=== PATIENT | female | born 1955 | race Caucasian/White ===

== ENCOUNTER → 2016-06-22 | Outpatient (CLI) | payer BC ==
[~2016-06-22] MED LIST: ACET-749 PO; ASPI-232 PO; ATOR10TA82 PO; BUPRTAB PO; MULT-506 PO; OMEG10007 PO
--- NOTE | 2016-06-24 08:26 | MAMMOGRAPHY REPORT ---
BILATERAL DIGITAL SCREENING MAMMOGRAM TOMOSYNTHESIS WITH CAD: 06/22/2016 CLINICAL HISTORY: Routine screening. Patient has no complaints. TECHNIQUE: Breast tomosynthesis in addition to standard 2D mammography was performed. Current study was also evaluated with a Computer Aided Detection (CAD) system. COMPARISON: Comparison is made to exams dated: 06/18/2015 mammogram, 06/14/2014 mammogram, 04/18/2013 mammogram, 04/14/2012 mammogram, 04/08/2011 mammogram, and 04/07/2010 mammogram - [facility]. BREAST COMPOSITION: The tissue of both breasts is heterogeneously dense, which may obscure small ma sses. FINDINGS: There are stable groupings of punctate benign-appearing microcalcifications in the left br east. No new suspicious mass, architectural distortion or cluster of microcalcifications is seen. IMPRESSION: ACR BI-RADS CATEGORY 1: NEGATIVE There is no mammographic evidence of malignancy. A 1 year screening mammogram is recommended. The p atient will receive written notification of the results. Approximately 10% of breast cancers are not detected with mammography. A negative mammographic repor t should not delay biopsy if a clinically suggestive mass is present. Shelly Yip M.D. ay/:06/23/2016 17:54:30 [employer] [address] Radio Technician: Mickey SAENZ(R)([place]), [facility] letter sent: Normal 1/2 BI-RADS Code: ACR BI-RADS Category 1: Negative
== END | disposition home or self-care (01) ==
LOC: C.MAMM 07:46
PROVIDERS: ATTEND Obstetrics & Gynecology
DX: Z12.31 Encounter for screening mammogram for malignant neoplasm of breast (principal)

== ENCOUNTER → 2017-10-14 | Outpatient (CLI) | payer OTHER ==
[~2017-10-14] MED LIST changes: -ACET-749 PO
--- NOTE | 2017-10-15 14:32 | MAMMOGRAPHY REPORT ---
BILATERAL DIGITAL SCREENING MAMMOGRAM TOMOSYNTHESIS WITH CAD: 10/14/2017 CLINICAL HISTORY: Routine screening. Patient has no complaints. TECHNIQUE: Breast tomosynthesis in addition to standard 2D mammography was performed. Current study w as also evaluated with a Computer Aided Detection (CAD) system. COMPARISON: Comparison is made to exams dated: 06/22/2016 mammogram, 06/18/2015 mammogram, 06/14/2014 ma mmogram, 04/18/2013 mammogram, 04/14/2012 mammogram, and 04/08/2011 mammogram - [facility]. BREAST COMPOSITION: The tissue of both breasts is heterogeneously dense, which may obscure small mass es. FINDINGS: No suspicious masses, calcifications, or areas of architectural distortion are noted in either breast . There has been no significant interval change compared to prior exams. Benign-appearing left breas t calcifications are not significantly changed. IMPRESSION: ACR BI-RADS CATEGORY 2: BENIGN There is no mammographic evidence of malignancy. A 1 year screening mammogram is recommended.( [id number]) The patient will receive written notification of the results. Some breast cancers are not detected with mammography. A negative mammographic report should not anthony y biopsy if a clinically suggestive mass is present. Meri Gaston M.D. ah/:10/14/2017 15:00:46 Vineyard Tender: RT Jamilah(Boom)(M)([place]), [facility] letter sent: Normal 1/2 BI-RADS Code: ACR BI-RADS Category 2: Benign
== END | disposition home or self-care (01) ==
LOC: C.MAMM 14:18
PROVIDERS: ATTEND Obstetrics & Gynecology
DX: Z12.31 Encounter for screening mammogram for malignant neoplasm of breast (principal)

== ENCOUNTER 2019-05-01 05:44 | Inpatient (IN) ==
--- NOTE | 2019-04-12 16:00 | PAT Medication Instructions ---
Medication Instructions Date of Service April 12, 2019 Home Medications aspirin 81 mg PO QPM atorvastatin 10 mg PO HS multivitamin 1 tab PO QPM omega 9-gbv-kny-fish oil [Fish Oil] 1 cap PO QPM gabapentin 600 mg PO HS ibuprofen 400 mg PO Q6H PRN tramadol 50 mg PO Q6H PRN ASK your surgeon for instructions ibuprofen 400 mg PO Q6H PRN ASK your prescriber and surgeon aspirin 81 mg PO QPM STOP taking 2 weeks before surgery (or as soon as possible if surgery is within 2 weeks) omega 1-tpk-xqy-fish oil [Fish Oil] 1 cap PO QPM Take morning of surgery With a small sip of water, OTHERWISE NOTHING TO EAT OR DRINK AFTER MIDNIGHT: tramadol 50 mg PO Q6H PRN (okay to take up to 4 hours prior to surgery if needed) Take evening before surgery atorvastatin 10 mg PO HS multivitamin 1 tab PO QPM gabapentin 600 mg PO HS tramadol 50 mg PO Q6H PRN (if needed) Other Notes If you have any questions please call us at [phone] or [phone] or [phone] or [phone]
--- NOTE | 2019-04-17 09:40 | Anesthesiology Consultation ---
Date of Service April 17, 2019 Assessment & Plan (1) Encounter for pre-operative examination: Cardiology note: 03/16/19: 02/2019 stress test reviewed. "Normal stress echocardiogram with normal overall heart function. No findings to suggest prior heart attack. Good, no contraindications to surgery as planned." Chart Review Chart Review: Acceptable Risk for Surgery and Patient seen in Pre Admission Testing Teaching & Discussion Pre-Anesthesia Teaching/Discussion Notes: Instructed NPO after midnight before surgery,except medications with 15 cc of water. Medication instructions provided according to the PAT guidelines. History Surgery Operation Date: 05/01/19 07:45 Proposed Procedures p L4-L5 Decompression and Fusion, Spinal Cord Monitoring - Celso Fuchs DO Height/Weight Height: 5 ft 2 in Weight: 63.5 kg Allergies Allergy/AdvReac Type Severity Reaction Status Date / Time nickel Allergy Severe Rash Verified 04/10/19 10:50 benzocaine Allergy Unknown Rash (see Verified 04/17/19 09:53 comments) Additional Notes: *Surgeon's office made aware of nickel/benzocaine reactions* Medications Home Medications Medication Instructions Recorded Confirmed Last Taken aspirin 81 mg PO QPM 10/28/17 04/10/19 11/07/17 21:00 atorvastatin 10 mg PO HS 10/28/17 04/10/19 11/07/17 20:00 multivitamin 1 tab PO QPM 10/28/17 04/10/19 11/07/17 21:00 omega 6-aht-lim-fish oil [Fish Oil] 1 cap PO QPM 10/28/17 04/10/19 11/07/17 21:00 gabapentin 600 mg PO HS 04/10/19 04/10/19 Unknown ibuprofen 400 mg PO Q6H PRN 04/10/19 04/10/19 Unknown tramadol 50 mg PO Q6H PRN 04/10/19 04/10/19 Unknown Past Medical History Medical History Back pain associated with peripheral numbness Bulging lumbar disc Exercise / Class Metabolic Activity II 4-5 Yardwork/Stairs/Walk up hill Past Surgical History Surgical History History of carpal tunnel release RT HAND History of colonoscopy History of surgical removal of ganglion cyst RIGHT Hx of eye surgery MACULAR PUCKER - RIGHT EYE Right Vitrectomy: 11/08/17: MAC sedation at [facility] Hx of wisdom tooth extraction Trigger finger RT THUMB Past Anesthesia History No Hx of Anesthesia Complications (except PONV) and No Family Hx of Anesthesia Complications History of PONV No Hx of Motion Sickness and History of PONV Social History Smoking Status: Never smoker Do You Dip or Chew Tobacco: No Hx Alcohol Use: Yes Alcohol type: beer and wine alcohol intake frequency: a few times a week Hx Substance Use: No substance use type: does not use Review of Systems Patient denies chest pain, shortness of breath, dyspnea on exertion, cough, wheezing, palpitations. Physical Exam Vital Signs VITALS BP 117/78 P 73 TEMP 98.2 SP02 97%RA RESP 18 PHYSICAL Full neck and c-spine range of motion. Full TMJ range of motion. TMD 3.5 finger breaths Mallampati Score 1 Dentition: intact, crowns on sides Lungs: clear throughout to auscultation Cardiac: regular rate and rhythm, no murmurs noted Spine: normal Carotid arteries: negative bruit Extremities: no edema Testing Laboratory Results 04/17/19 10:05 04/17/19 10:05 PT 10.0 Seconds (9.0-12.0) 04/17/19 10:05 INR 1.0 (0.9-1.1) 04/17/19 10:05 APTT 24.3 Seconds (21.0-31.0) 04/17/19 10:05 Urine Color Yellow 04/17/19 10:05 Urine Appearance Clear (Clear) 04/17/19 10:05 Urine pH 5.5 (4.5-7.5) 04/17/19 10:05 Ur Specific Novi 1.015 (1.000-1.030) 04/17/19 10:05 Urine Protein Negative (Negative) 04/17/19 10:05 Urine Glucose (UA) Negative (Negative) 04/17/19 10:05 Urine Ketones Negative (Negative) 04/17/19 10:05 Urine Nitrite Negative (Negative) 04/17/19 10:05 Ur Leukocyte Esterase Negative (Negative) 04/17/19 10:05 Urine WBC (Auto) 1-5 /hpf (0-5) 04/17/19 10:05 Urine RBC (Auto) 5-10 /hpf (0-4) H 04/17/19 10:05 U Hyaline Cast (Auto) 0 /lpf (0-5) 04/17/19 10:05 U Epithel Cells (Auto) 10-20 /lpf (0-5) H 04/17/19 10:05 Urine Bacteria (Auto) Negative (Negative) 04/17/19 10:05 Blood Type O Positive 04/17/19 10:05 Antibody Screen NEGATIVE 04/17/19 10:05 Electrocardiogram Date: 03/08/19 Findings: + NSR @ (70) Chest X-Ray Date: 04/17/19 Findings: + NAD Stress Test Date: 03/15/19 Type: DSE DSE normal without inducible ischemia. Mild TR. Stress EKG with no evidence of ischemia. LVEF 60-64%. 109% MPHR.
--- NOTE | 2019-04-17 10:31 | XRay Report ---
XR chest Pre-admission PA/Lat CLINICAL HISTORY: pat preoperative evaluation COMPARISON STUDY: No previous studies for comparison. FINDINGS: The bones soft tissues and hemidiaphragms are normal. The cardiomediastinal silhouette is n ormal. The lungs are clear. The pulmonary vasculature is normal. IMPRESSION: Negative chest. ACT 112: Negative or not required by law. The above report was generated using voice recognition software. It may contain grammatical, syntax or spelling errors. Electronically signed by: Joseph Downs M.D. 04/17/2019 10:30 AM
[2019-04-17 11:49] LABS: Basophils # (auto) 0.03 K/uL (0-0.2); Basophils % (auto) 0.4 %; Eosinophils # (auto) 0.06 K/uL (0-0.5); Eosinophils % (auto) 0.9 %; Hematocrit (blood only) 38.8 % (37-47); Hemoglobin 13.1 g/dL (12.0-16.0); Immature Granulocytes # (auto) 0.02 K/uL (0.00-0.02); Immature Granulocytes % (auto) 0.3 %; Lymphocytes # (auto) 1.41 K/uL (1.2-3.4); Lymphocytes % (auto) 20.6 %; Mean Corpuscular Hemoglobin 33.1 pg (25-34); Mean Corpuscular Hgb Conc 33.8 g/dL (32-36); Mean Platelet Volume 10.7 fL (7.4-10.4); Monocytes # (auto) 0.38 K/uL (0.11-0.59); Monocytes % (auto) 5.6 %; Neutrophils # (auto) 4.93 K/uL (1.4-6.5); Neutrophils % (auto) 72.2 %; Platelet Count 236 K/uL (130-400); RDW Coefficient of Variation 12.5 % (11.5-14.5); RDW Standard Deviation 44.9 fL (36.4-46.3); Red Blood Count 3.96 M/uL (4.2-5.4); White Blood Count 6.83 K/uL (4.8-10.8)
[2019-04-17 11:56] LABS: BUN Creatinine Ratio 21.4 (10-20); Calcium 9.2 mg/dl (8.5-10.1); Creatinine Clr Calc Pharmacy 57.9 ml/min; Est GFR (African American) 82.2; Est GFR (Non-African American) 70.9; Potassium 4.1 mmol/L (3.5-5.1)
[2019-04-17 12:01] LABS: Partial Thromboplastin Ratio 0.9; Partial Thromboplastin Time 24.3 Seconds (21.0-31.0)
[2019-04-17 12:25] LABS: Appearance Urine Clear (Clear); Bacteria Urine Automated Negative (Negative); Bilirubin Urine Negative (Negative); Blood Urine 1+ (Negative); Cast Urine Automated 0 /lpf (0-5); Color Urine Yellow; Glucose Urine UA Negative (Negative); Ketones Urine Negative (Negative); Leukocyte Esterase Urine Negative (Negative); Nitrite Urine Negative (Negative); Protein Urine Negative (Negative); Specific Gravity Urine 1.015 (1.000-1.030); Urobilinogen Urine Negative (Negative); pH Urine 5.5 (4.5-7.5)
[2019-05-01] MEDS ORDERED: LR 15ML/HR IV SCH (06:00)
[2019-05-01] MEDS ORDERED: CEFAZOLIN 1000MG 1,000 MG/7.5 ML SYR IV SCH (06:00)
[2019-05-01] MEDS ORDERED: GABAPENTIN 600 MG DOSE PO SCH (06:00)
[2019-05-01] MEDS ORDERED: CeleBREX 200 MG CAP PO SCH (06:00)
[2019-05-01] MEDS ORDERED: ACETAMINOPHEN 500 MG TAB PO SCH (06:00)
[2019-05-01] MEDS ORDERED: BACITRACIN INJ 50,000 UNIT VIAL ONE (06:57)
[2019-05-01] MEDS ORDERED: BUPIVACAINE/EPINEPHRINE 0.5% MPF 1:200,000 10 ML VIAL ONE (06:58)
[2019-05-01] MEDS ORDERED: PROPOFOL IV EMULSION 10 MG/ML 20 ML VIAL IV ONE (07:04)
[2019-05-01] MEDS ORDERED: MIDAZOLAM HCL 1 MG/ML 2ML VIAL ONE (07:04)
[2019-05-01] MEDS ORDERED: NEOSTIGMINE METHYLSULFATE 1 MG/ML 10ML VIAL ONE (07:04)
[2019-05-01] MEDS ORDERED: DEXAMETHASONE SOD INJ 4 MG/ML VIAL ONE ×2 (07:04→08:24)
[2019-05-01] MEDS ORDERED: ONDANSETRON INJ 2 MG/ML 2 ML VIAL ONE ×2 (07:04→08:25)
[2019-05-01] MEDS ORDERED: LIDOCAINE HCL 2% 2 ML VIAL/AMP(20MG/ML) INFIL ONE (07:04)
[2019-05-01] MEDS ORDERED: GLYCOPYRROLATE 0.2 MG/ML VIAL ONE ×2 (07:04→08:24)
[2019-05-01] MEDS ORDERED: fentaNYL citrate 100 MCG/2 ML VIAL ONE (07:04)
[2019-05-01] MEDS ORDERED: LARYING-O-JET KIT (LTA) ONE (07:06)
[2019-05-01] MEDS ORDERED: ROCURONIUM BROMIDE 10 MG/ML 5 ML VIAL ONE (07:06)
[2019-05-01] MEDS ORDERED: SCOPOLAMINE 1.5 MG TDSY ONE (07:18)
[2019-05-01] MEDS ORDERED: fentaNYL citrate 100 MCG/2 ML VIAL IV PRN (07:19)
[2019-05-01] MEDS ORDERED: ONDANSETRON INJ 2 MG/ML 2 ML VIAL IV PRN ×2 (07:19→10:26)
[2019-05-01] MEDS ORDERED: ePHEDrine sulfate 50 MG/ML AMP IV PRN (07:19)
[2019-05-01] MEDS ORDERED: ATROPINE SULFATE 0.1 MG/ML 10ML SYR IV PRN (07:19)
[2019-05-01] MEDS ORDERED: HYDROmorphone INJ 2 MG/ML SYR/VIAL IV PRN (07:19)
--- NOTE | 2019-05-01 07:27 | History & Physical Bridge Note ---
Date of Service May 01, 2019 History & Physical Bridge Note I have examined the patient, reviewed the History & Physical and in the interval since the performance of the History & Physical I have noted the following changes of clinical significance: no changes noted
--- NOTE | 2019-05-01 07:28 | History & Physical Report ---
Date of Service May 01, 2019 Assessment & Plan (1) Neurogenic claudication due to lumbar spinal stenosis: L4-L5 decompression fusion Present on Admission?: Yes History of Present Illness Chief Complaint: Back and leg pain Primary Care Provider: Dilcia Mckeon MD This is a 64-year-old female presents with chronic persistent back and leg pain. After failing extensive course of nonoperative care is here for surgical invention. Allergies Allergy/AdvReac Type Severity Reaction Status Date / Time nickel Allergy Severe Rash Verified 05/01/19 05:58 benzocaine Allergy Unknown Rash (see Verified 05/01/19 05:58 comments) Home Medications Home Medications Medication Instructions Recorded Confirmed Type aspirin 81 mg PO QPM 10/28/17 05/01/19 History atorvastatin 10 mg PO HS 10/28/17 05/01/19 History multivitamin 1 tab PO QPM 10/28/17 05/01/19 History omega 8-jhu-gcg-fish oil [Fish Oil] 1 cap PO QPM 10/28/17 05/01/19 History gabapentin 600 mg PO HS 04/10/19 05/01/19 History ibuprofen 400 mg PO Q6H PRN 04/10/19 05/01/19 History tramadol 50 mg PO Q6H PRN 04/10/19 05/01/19 History Past Med/Surg History Medical History Back pain associated with peripheral numbness Bulging lumbar disc Surgical History History of carpal tunnel release RT HAND History of colonoscopy History of surgical removal of ganglion cyst RIGHT Hx of eye surgery MACULAR PUCKER - RIGHT EYE Right Vitrectomy: 11/08/17: MAC sedation at [facility] [place] Hx of wisdom tooth extraction Trigger finger RT THUMB Social History Preferred Language: Persian Communication Ability: Effective Health Concierge Required: No Beliefs That Will Affect Care: None Current Living Situation: Spouse Feels Safe at Home: Yes Safety Concerns: Feels Safe At This Time Smoking Status: Never smoker Do You Dip or Chew Tobacco: No ; Second Hand Exposure: No ; Hx Alcohol Use: Yes Alcohol type: beer and wine Hx Substance Use: No Physical Exam Physical Exam: Patient is alert and oriented neurologically intact. Results & Data Vital Signs (Past 12 Hours) Vital Signs Temp Pulse Resp BP Pulse Ox 05/01/19 06:08 36.8 C 71 20 119/68 95
[2019-05-01] MEDS ORDERED: PHENYLEPHRINE 100MCG/ML 5ML SYR ONE (08:13)
[2019-05-01] MEDS ORDERED: ePHEDrine sulfate 50 MG/ML SYR ONE (08:13)
[2019-05-01] MEDS ORDERED: FLOSEAL HEMOSTATIC MATRIX 10ML TOP ONE (08:21)
--- NOTE | 2019-05-01 09:09 | Operative Report ---
Post Operative Report Pre & Post Diagnosis Operation Date: 05/01/19 07:45 Pre-Op Diagnosis: LUMBAR INTERVERTEBRAL DISC DISPLACEMENT Post-Op Diagnosis: LUMBAR INTERVERTEBRAL DISC DISPLACEMENT I identified the patient and participated in the time-out.: Yes Procedure Operation Date: 05/01/19 07:45 Actual Procedures #1 lumbar decompression with bilateral medial facetectomies foraminotomies L4-5 per #2 posterior spinal fusion L4-5 per #3 placement posterior instrumentation L4-5 per #4 interbody fusion L4-5 per #5 placed a peek cage 12 x 22 mm at L4-5 p er #6 placement locally harvested morselized autograft in the posterior lateral gutters. #7 placement infuse collagen sponge, master graft in the posterior gutters and ostial amp interbody space. Surgeon Celso Fuchs, Supervisor [employer] Sahra Evans Estimated Blood Loss 100 Findings Consistent with Post-Op Diagnosis Specimens None Indications This is a 64-year-old female who presents with above-mentioned diagnosis after failing since course of nonoperative care is here for surgical intervention. Description of Procedure Patient was met with identified informed consent obtained. Patient was then taken to the operative suite underwent intubation placed in a prone position the Edvin table on top of the Sam frame. All bony prominences well-padded eyes inspected to ensure no external pressure placed upon up at this point the lumbar spine was prepped and draped in a normal sterile fashion. Sharp dissection with the assistance of Bovie cautery was performed down to and exposing the lamina and transverse processes of L4 and L5 bilaterally. From caudal cephalad fashion complete laminectomy of L4 was performed including medial facetectomies and foraminotomies. There is evidence of a massive discrimination on the left causing significant question of the traversing L5 nerve root. This was also removed in its entirety. Pedicle screws were then placed in L4 and L5 bilaterally with assistance of fluoroscopy the process aric placed. By way of a trans-foraminal approach on the left the discectomy was performed endplates curetted to subcortical bleeding bone and a 12 x 22 mm peek cage filled with osteo-bone graft tapped in position. The rods were then locked in final position bilaterally. Transverse processes of L4 and L5 bur to subcortical bleeding bone. Infuse collagen sponge master graft local autograft placed in the posterior lateral gutters. 15 round YAS drain inserted. The incision was then closed with 1 Vicryl in the fascia 2-0 Vicryl subcutaneously and 4 Monocryl for final skin closure. Steri-Strip sterile dressings placed. Patient will continue to PACU stable disc. Please note Sahra Evans present all the entire procedure involved the patient positioning complex portions of the surgery and final skin closure. I attest to the content of the Intraoperative Record and any orders documented therein. Any exceptions are noted below.
--- NOTE | 2019-05-01 09:11 | Fluoroscopy Report ---
FL lumbar spine 2-3V CLINICAL HISTORY: L4-L5 DECOMP/FUSION COMPARISON STUDY: None FLUOROSCOPY TIME: 11 seconds NUMBER OF FLUOROSCOPIC IMAGES: 2 FINDINGS: Image intensifier support for an L4-L5 laminectomy and fusion IMPRESSION: Image intensifier support for an L4-L5 laminectomy and fusion. ACT 112: Negative or not required by law. The above report was generated using voice recognition software. It may contain grammatical, syntax or spelling errors. Electronically signed by: Joseph Downs M.D. 05/01/2019 9:10 AM
--- NOTE | 2019-05-01 09:51 | Anesthesiology Progress Note ---
Date of Service May 01, 2019 Anesthesia Post Procedure Vital Signs Vital Signs: Temp Pulse Pulse Resp BP Pulse Ox 05/01/19 09:40 81 13 106/56 L 100 05/01/19 09:30 75 12 117/64 100 05/01/19 09:20 36.7 C 79 12 105/59 L 100 05/01/19 06:08 36.8 C 71 20 119/68 95 Pain Intensity Left Leg: Pain Intensity: 6 Transfer of Care Handoff Completed per policy Notes Mental Status: alert / awake / arousable and participated in evaluation Patient Amnestic to Procedure: Yes Nausea / Vomiting: adequately controlled Pain: adequately controlled Airway Patency, RR, SpO2: stable & adequate BP & HR: stable & adequate Hydration State: stable & adequate Anesthetic Complications: no major complications apparent and Pt Satisfied with anesthetic care
[2019-05-01] MEDS ORDERED: bisacodyL 10 MG SUPP PR PRN (10:26)
[2019-05-01] MEDS ORDERED: ONDANSETRON 4 MG OD TAB PO PRN (10:26)
[2019-05-01] MEDS ORDERED: ACETAMINOPHEN 1,000 MG/100 ML VIAL IV PRN (10:26)
[2019-05-01] MEDS ORDERED: LORazepam 0.5 MG/1 ML VIAL IV PRN (10:26)
[2019-05-01] MEDS ORDERED: SOD PHOSPHATE/SOD BIPHOSPHATE ENEMA 132 ML BTL PR PRN (10:26)
[2019-05-01] MEDS ORDERED: HYDROmorphone INJ 1 MG/ML SYRINGE IV PRN (10:26)
[2019-05-01] MEDS ORDERED: METOCLOPRAMIDE HCL INJ 5 MG/ML 2 ML VIAL IV PRN (10:26)
[2019-05-01] MEDS ORDERED: FAMOTIDINE 20 MG TAB PO PRN (10:26)
[2019-05-01] MEDS ORDERED: MAGNESIUM HYDROXIDE SUSP 30 ML UDC PO PRN (10:26)
[2019-05-01] MEDS ORDERED: DO NOT ADMINISTER FLU VACCINE PRN (10:26)
[2019-05-01] MEDS ORDERED: PROMETHAZINE HCL 12.5 MG in SODIUM CHLORIDE 0.9% 50 ML IV PRN (10:26)
[2019-05-01] MEDS ORDERED: ALUMINUM/MAGNESIUM SUSP 30 ML UDC PO PRN (10:26)
[2019-05-01] MEDS ORDERED: LORazepam 0.5 MG TAB PO PRN (10:26)
[2019-05-01] MEDS ORDERED: NALOXONE HCL 0.4 MG/1 ML VIAL/CARP IV PRN (10:26)
[2019-05-01] MEDS ORDERED: DO NOT ADMINISTER PNEUMOCOCCAL VACCINE PRN (10:26)
[2019-05-01] MEDS ORDERED: ACETAMINOPHEN 500 MG TAB PO PRN (10:26)
[2019-05-01] MEDS ORDERED: HYDROmorphone INJ 0.5 MG/0.5 ML SYR IV PRN (10:26)
[2019-05-01] MEDS: LACTATED RINGER'S 1,000 ML IV SCH ×2 (10:34→20:43)
[2019-05-01] MEDS: TRAMADOL HCL 50 MG TABLET PO PRN (10:40)
[2019-05-01] MEDS: CEFAZOLIN 1000MG 1,000 MG/7.5 ML SYR IV SCH ×2 (16:35→23:56)
[2019-05-01] MEDS: ATORVASTATIN 10 MG TAB PO SCH (20:44)
[2019-05-01] MEDS: GABAPENTIN 600 MG TAB PO SCH (20:44)
[2019-05-01] MEDS: MULTIVITAMIN TAB PO SCH (20:44)
[2019-05-01] MEDS: DOCUSATE SODIUM/SENNA 50/8.6MG TAB PO SCH (20:44)
[2019-05-01] MEDS: ASPIRIN 81 MG CHEW PO SCH (20:44)
[2019-05-02 05:31] LABS: Basophils # (auto) 0.01 K/uL (0-0.2); Basophils % (auto) 0.1 %; Hematocrit (blood only) 30.9 % (37-47); Hemoglobin 10.5 g/dL (12.0-16.0); Immature Granulocytes # (auto) 0.04 K/uL (0.00-0.02); Immature Granulocytes % (auto) 0.3 %; Lymphocytes # (auto) 1.15 K/uL (1.2-3.4); Lymphocytes % (auto) 8.1 %; Mean Corpuscular Hemoglobin 32.9 pg (25-34); Mean Corpuscular Volume 96.9 fL (80-100); Mean Platelet Volume 10.2 fL (7.4-10.4); Monocytes # (auto) 0.72 K/uL (0.11-0.59); Monocytes % (auto) 5.1 %; Neutrophils # (auto) 12.31 K/uL (1.4-6.5); Neutrophils % (auto) 86.4 %; Platelet Count 198 K/uL (130-400); RDW Coefficient of Variation 12.6 % (11.5-14.5); RDW Standard Deviation 44.4 fL (36.4-46.3); Red Blood Count 3.19 M/uL (4.2-5.4); White Blood Count 14.23 K/uL (4.8-10.8)
[2019-05-02] MEDS: POLYETHYLENE (MIRALAX) 17 GM PACK PO SCH ×3 (05:49→17:32)
[2019-05-02 06:00] LABS: BUN Creatinine Ratio 16.3 (10-20); Calcium 8.4 mg/dl (8.5-10.1); Est GFR (African American) 95.2; Est GFR (Non-African American) 82.2; Potassium 4.3 mmol/L (3.5-5.1)
--- NOTE | 2019-05-02 07:56 | Anesthesiology Progress Note ---
Date of Service May 02, 2019 Anesthesia Post Procedure Vital Signs Vital Signs: Temp Pulse Pulse Resp BP Pulse Ox 05/02/19 07:10 36.6 C 70 16 103/66 94 05/02/19 03:55 36.6 C 67 20 101/64 94 05/01/19 23:14 36.7 C 69 20 99/62 L 93 05/01/19 18:55 36.9 C 82 16 102/67 95 05/01/19 17:32 36.8 C 72 16 97/59 L 96 05/01/19 13:07 36.4 C L 77 16 115/70 99 05/01/19 12:03 36.3 C L 84 16 108/67 97 05/01/19 11:06 36.3 C L 76 16 106/67 100 05/01/19 10:35 71 18 110/67 99 05/01/19 10:03 36.4 C L 73 16 107/62 98 05/01/19 09:50 36.6 C 69 14 99/64 L 97 05/01/19 09:40 81 13 106/56 L 100 05/01/19 09:30 75 12 117/64 100 05/01/19 09:20 36.7 C 79 12 105/59 L 100 Pain Intensity Left Leg: Pain Intensity: 6 Back: Pain Intensity: 0 Notes Mental Status: alert / awake / arousable and participated in evaluation Nausea / Vomiting: adequately controlled Pain: adequately controlled Airway Patency, RR, SpO2: stable & adequate BP & HR: stable & adequate Hydration State: stable & adequate
[2019-05-02] MEDS: TRAMADOL HCL 50 MG TABLET PO PRN (11:42)
--- NOTE | 2019-05-02 14:04 | Orthopedic Progress Note ---
Date of Service May 02, 2019 Assessment & Plan (1) Neurogenic claudication due to lumbar spinal stenosis: This time we will continue physical therapy monitor her YAS output anticipate discharge home in the next few days. Present on Admission?: Yes Admission and Anticipated Discharge Date Admission Date: May 01, 2019 Subjective Back pain controlled leg symptoms improved Physical Exam Physical Exam: Patient is good strength testing appears comfortable. Results & Data ([facility]) Vital Signs (Past 12 Hours) Vital Signs Temp Pulse Resp BP Pulse Ox 05/02/19 11:50 36.7 C 65 16 103/63 95 05/02/19 07:10 36.6 C 70 16 103/66 94 05/02/19 03:55 36.6 C 67 20 101/64 94
[2019-05-02] MEDS: OXYCODONE HCL IR 5 MG TAB (IMMEDIATE RELEASE) PO PRN (16:48)
[2019-05-02] MEDS: GABAPENTIN 600 MG TAB PO SCH (20:59)
[2019-05-02] MEDS: DOCUSATE SODIUM/SENNA 50/8.6MG TAB PO SCH (20:59)
[2019-05-02] MEDS: ATORVASTATIN 10 MG TAB PO SCH (21:00)
[2019-05-02] MEDS: ASPIRIN 81 MG CHEW PO SCH (21:00)
[2019-05-02] MEDS: MULTIVITAMIN TAB PO SCH (21:00)
[2019-05-03] MEDS: OXYCODONE HCL IR 5 MG TAB (IMMEDIATE RELEASE) PO PRN ×6 (00:04→21:48)
[2019-05-03] MEDS: POLYETHYLENE (MIRALAX) 17 GM PACK PO SCH ×5 (00:26→23:52)
[2019-05-03] MEDS: DEXAMETHASONE SOD PHOSPHATE 8 MG in SYRINGE 0 ML IV SCH (07:46)
--- NOTE | 2019-05-03 12:21 | Orthopedic Progress Note ---
Date of Service May 03, 2019 Assessment & Plan (1) Neurogenic claudication due to lumbar spinal stenosis: This time we will continue physical therapy monitor YAS output anticipate discharge home tomorrow. Present on Admission?: Yes Admission and Anticipated Discharge Date Admission Date: May 01, 2019 Subjective Back pain controlled leg pain improved. Physical Exam Physical Exam: Patient is good strength testing appears comfortable. Results & Data ([facility]) Vital Signs (Past 12 Hours) Vital Signs Temp Pulse Resp BP Pulse Ox 05/03/19 07:05 36.8 C 68 16 99/61 L 93
[2019-05-03] MEDS: ASPIRIN 81 MG CHEW PO SCH (20:43)
[2019-05-03] MEDS: DOCUSATE SODIUM/SENNA 50/8.6MG TAB PO SCH (20:43)
[2019-05-03] MEDS: MULTIVITAMIN TAB PO SCH (20:43)
[2019-05-03] MEDS: ATORVASTATIN 10 MG TAB PO SCH (20:43)
[2019-05-03] MEDS: GABAPENTIN 600 MG TAB PO SCH (20:43)
[2019-05-04] MEDS: POLYETHYLENE (MIRALAX) 17 GM PACK PO SCH (05:27)
[2019-05-04] MEDS: OXYCODONE HCL IR 5 MG TAB (IMMEDIATE RELEASE) PO PRN (07:36)
[2019-05-04] MEDS: DEXAMETHASONE SOD PHOSPHATE 8 MG in SYRINGE 0 ML IV SCH (07:36)
--- NOTE | 2019-05-04 08:57 | Discharge Summary ---
Date of Service May 04, 2019 Admission HPI Per Admitting Provider This is a 64-year-old female presents with chronic persistent back and leg pain. After failing extensive course of nonoperative care is here for surgical invention. Principal Diagnosis Lumbar spinal stenosis with radiculopathy Discharge Data Allergies Allergy/AdvReac Type Severity Reaction Status Date / Time nickel Allergy Severe Rash Verified 05/01/19 05:58 benzocaine Allergy Unknown Rash (see Verified 05/01/19 05:58 comments) Consultations 05/01/19 10:26 Consult Case Management - Discharge Planning Routine Procedures Performed Operation Date: 05/01/19 07:45 Actual Procedures p L4-L5 Decompression And Fusion,Interbody Fusion, Spinal Cord Monitoring - Celso Fuchs DO Ordered Studies 05/01/19 07:45 FL fluoroscopy <1hr Routine FL lumbar spine 2-3V Routine Hospital Course (1) Neurogenic claudication due to lumbar spinal stenosis: Patient underwent lumbar decompression fusion tolerated this well second orthopedic for postoperative. Postop day 1 she was up and ambulating well. Progressed to postop day #2. Postop day 3 she had excellent strength testing very comfortable subsequent discharge home. Discharge orders and instructions from the chart for further review. Total Time Total Time Spent Total Time Spent (In Minutes): 20 minutes Discharge Plan Discharge Items Patient Disposition: Home - Self-Care Reason For Visit: LUMBAR INTERVERTEBRAL DISC DISPLACEMENT Discharge Diagnosis: Lumbar spinal stenosis with neurogenic claudication Activity: As commented below Non-emergency contact: Primary Care Provider Call non-emergency contact if: you have any medication questions Follow-up/Referrals: Dilcia Mckeon MD [Primary Care Provider] - Diet: Regular Addtl Attending Provider Instructions: ACTIVITY RECOMMENDATIONS: SELF CARE INSTRUCTIONS AFTER THORACIC/LUMBAR FUSIONS 1. You may walk to your tolerance. It is good exercise for your legs and back. Expect some back and intermittent leg aches and pains. 2. You may perform "counter-top" level activities (make a sandwich, baljinder with a project, etc.). 3. No bending or lifting of more than 10 pounds or back twisting of any nature (roll like a log when turning in bed). 4. You may ride in a car for 20-30 minutes at a time. No driving until after your first visit with your doctor. 5. Frequent changes of position and restricting sitting to 30 minutes at a time will help limit the amount of back spasms and stiffness you may experience. 6. You may discontinue the use of ambulatory aids (cane, crutches, etc.) once your strength and confidence allow. 7. You may room inspector the shower and let water strike your incision when you arrive home at least once daily. Do not take a tub bath, sit in a hot tub or go into a swimming pool until after your first recheck in the office. SPECIAL CARE INSTRUCTIONS: VERY IMPORTANT TO READ AND REVIEW A. Your surgical incision has been closed with a cosmetic suture under the skin that will dissolve in about 6 weeks. In 14 days, you can use a pair of clean scissors and cut the suture that is left outside of the skin at the ends of your incision. 1. The small skin tapes can be removed 7 days after surgery if they have not fallen off by that point. 2. You may keep the wound open to air as much as possible to promote healing after post-op day number 5 unless told otherwise by your doctor. 3. If you think the wound looks like it is becoming infected (redness or worsening drainage) and/or you are experiencing fever, chill or worsening back pain and muscle spasms, contact the office so that we may evaluate you as soon as possible. B. Complications are uncommon, but please contact us if you have any signs or symptoms of: 1. wound infection (fever higher than 102.5 degrees F, redness, separation of wound, drainage, or increasing pain from the incision) 2. blood clots in legs (pain, swelling, redness and warmth in legs) 3. urinary tract infection (fever higher than 102.5 degrees F, burning upon urination or increased frequency of urination) 4. nerve problems (inability to walk on your toes or heels, numbness, loss of bowel or bladder control) 5. any other symptoms that concern you C. Please call the office at if you have any concerns or questions about your operation or recovery. D. No smoking! Smoking drastically decreases the chance of a solid fusion. E. Do not take any anti-inflammatory medications (Indocin, Advil, Motrin, Aspirin, Naprosyn, etc.) as these may inhibit the chance of a solid fusion. Tylenol is okay to take for pain. MANAGING PAIN AFTER SPINAL SURGERY 1. Narcotic medication is intended for short-term use and will be provided for surgical pain. Surgical pain usually lasts for a period of 4-6 weeks. Narcotic medication includes Percocet, Vicodin, Darvocet, Tylenol #3 or Lortab. 2. Longer-term pain is more appropriately treated with non-narcotic medication such as Tylenol ES. 3. Muscle spasm is not appropriately treated with narcotics. Muscle relaxers such as Soma, Flexeril or Skelaxin can be used along with Tylenol ES. 4. Remember that we all live with some "aches and pains". This is not unusual or uncommon after an injury or as we get older. a. Back pain is expected and may include muscle spasms for 4 to 6 weeks after surgery. The pain should gradually improve. If the pain worsens for no apparent reason, please contact the office. b. Intermittent leg pain may also be experienced and should not be concerned about unless it worsens for no apparent reason. If so, please contact the office. 5. We will provide appropriate medication within the normal guidelines of their prescribed use. We will also be very cautious and aware of potential abuse and extended duration of patients' medication needs. a. Pain medications are for your comfort and to assist with sleep and rest so that the tissue can heal. They are not provided in order to return to normal activity and should not be used through the day. To do so or worsening pain at night can result from ongoing tissue damage and dev elopment of tolerance to the prescribed medicine. 6. Please allow 2-3 days to process refills. Prescriptions will not be mailed but must be picked up at the office. FOLLOW UP VISIT: Keep your scheduled follow-up appointment. Any questions, please call the office at . Pending Studies at Discharge: No Stand-Alone Forms: [facility] [employer], Smoking Cessation Medications and DC Order Prescriptions: New oxycodone 5 mg tablet 5 mg PO Q6H PRN (Reason: pain, severe) Qty: 30 RF: 0 tramadol 50 mg tablet 50 mg PO Q6H PRN (Reason: pain, moderate) Qty: 30 RF: 0 Continued multivitamin Tablet 1 tab PO QPM RF: 0 atorvastatin 10 mg Tablet 10 mg PO HS RF: 0 aspirin 81 mg Tablet,Chewable 81 mg PO QPM RF: 0 omega 0-hco-olj-fish oil [Fish Oil] 1,000 mg (120 mg-180 mg) Capsule 1 cap PO QPM RF: 0 gabapentin 600 mg Tablet 600 mg PO HS RF: 0 tramadol 50 mg Tablet 50 mg PO Q6H PRN (Reason: Pain) RF: 0 Discontinued ibuprofen 200 mg Tablet 400 mg PO Q6H PRN (Reason: Pain) RF: 0 Discharge Orders: Discharge Order (Routine); Ordered 05/04/19 Ordered By: Celso Fuchs Admission Data Admit Date/Time: 05/01/19 09:27 Attending Provider: Celso Fuchs Admit Provider: Celso Fuchs Primary Care Provider: Dilcia Mckeon
== END 2019-05-04 10:42 | disposition home or self-care (01) | DRG 455 ==
LOC: ASU 05:44 → 3E 09:27